=== PATIENT | female | born 1940 | race Caucasian/White ===

== ENCOUNTER 2024-11-22 11:48 | Outpatient (CLI) | payer MEDICARE | END 2024-11-22 11:49 | disposition home or self-care (01) | LOC: MADRAD 11:48 | PROVIDERS: ATTEND Otolaryngology Otolaryngic Allergy | DX: J20.9 Acute bronchitis, unspecified (principal); J98.6 Disorders of diaphragm; R14.0 Abdominal distension (gaseous) | CPT/HCPCS: 71046 ==